=== PATIENT | male | born 1965 | race American Indian/Alaskan Native ===

== ENCOUNTER 2017-03-18 12:15 | Emergency (ER) | payer SELFPAY ==
[2017-03-18 12:46] VITALS: BP 129/72
--- NOTE | 2017-03-18 14:06 | Emergency Department Report ---
Chief Complaint: Dizziness Stated Complaint: DIZZINESS/BP CHECK Time Seen by Provider: 03/18/17 14:06 - HPI History of Present Illness: Patient here complaining of dizziness, heart racing and fatigue. He said his symptoms started last night. Denies any medical problem history of tonsillectomy and appendectomy. He said he works outside a lot. And thinks he is dehydrated. Denies any chest pain or shortness of breath. Denies any cardiac related issues. Patient reports that he just wanted his blood pressure checked. He does not want to have lab work or any other diagnostics tests done and wants to sign out AMA. - ROS Review of Systems: All systems are negative unless stated in HPI above. - Exam Vital Signs: Vital Signs 03/18/17 12:44 Temperature 98.2 F Pulse Rate 98 H Respiratory 16 Rate Blood Pressure 129/72 O2 Sat by Pulse 99 Oximetry Physical Exam: Gen.: This is a 51-year-old male well-nourished well-developed in no acute distress. Head: Normocephalic, atraumatic, no abrasion, no bruising and no contusion. Eyes: Biateral pupils equal and reactive to light, bilateral EOM intact.. Bilateral conjunctival and sclera without injection, normal accommodation. Ears: Bilateral EAC without any redness drainage or swelling, Bilateral TM pearly richmond, bilateral tragus is normal and nontender. No auricular abnormality. No Mastoid bones tenderness. Neck: Supple, Positive Cervical adenopathy, full range of motion and no C-spine tenderness. No swelling or tracheal deviation Neurological: No gross focal neurological deficit. GCS of 15, alert and oriented 3, speech is clear and fluid and no facial drooping. No motor or sensory deficit, negative pronator drift and negative Romberg. Gait is normal. Cardiovascular: S1, S2. Regular rate and rhythm. No murmur. Capillary refill is less then 3 seconds. Lungs: Clear to auscultate bilaterally. No rhonchi, wheezes or rales. No chest wall tenderness Extremities: No clubbing, cyanosis or edema. +2 pulses. No neurovascular compromise Skin: Clean, dry and intact. No rash or lesions. Psych: Normal mood and behavior. MSE screening note: Focused history and physical exam performed. Due to findings the following was ordered:SEE [facility] ED Medical Decision Making - Lab Data Patient did not want any lab work done. See AMA - Radiology Data Radiology results: report reviewed Patient did not want any further workup. AMA - Medical Decision Making ED course: Should he reported that he was dizzy and heart was racing and feels fatigued and this started last night. He said he can't do the hospital to get his blood pressure checked. Blood pressure was normal and lab work and CT of the head ordered but patient did not want this because he said he knows he is dehydrated and he wants to sign out AMA. ED Disposition for MSE Clinical Impression: Dizziness Fatigue Qualifiers: Fatigue type: unspecified Qualified Code(s): R53.83 - Other fatigue Disposition: DC-07 LEFT AGAINST MED ADVICE Is pt being admited?: No Does the pt Need Aspirin: No Condition: Stable Referrals: PRIMARY CARE, [Primary Care Provider] - 3-5 Days Forms: AMA Form
== END 2017-03-18 14:19 | disposition left against medical advice (07) ==
LOC: ED 12:15
DX: R42 Dizziness and giddiness (principal); R53.83 Other fatigue
CPT/HCPCS: 99283